=== PATIENT | male | born 1990 ===

== ENCOUNTER 2019-06-09 23:32 | Emergency (ER) | payer SELFPAY ==
[~2019-06-09 23:32] MED LIST: ALBU90I INH; ALPR.5; CEPH500 PO; CLIN150 PO; CODACEE120 PO; CYCL10 PO; HYDACE5 PO; LORA.5 PO; METO25ER; NIFE60ER; PROACE100 PO; RXCLIN PO; SULTRIDS PO; TRAM50 PO
== END 2019-06-10 00:35 | disposition left against medical advice (07) ==
LOC: ER 23:32
DX: Z53.21 Procedure and treatment not carried out due to patient leaving prior to being seen by health care provider (principal)